=== PATIENT | female | born 1940 | race Caucasian/White ===

== ENCOUNTER 2017-11-20 10:25 | Inpatient (IN) | payer MEDICARE, BC ==
[2017-11-20] MEDS: SOD CHLORIDE 0.9% 1,000 ML IV ×5 (10:36→23:57)
[2017-11-20] MEDS: morphine 4 MG/ML VIAL IV (10:36)
[2017-11-20] MEDS: ONDANSETRON 4 MG INJ IV ×2 (10:37→22:28)
[2017-11-20 10:50] LABS: ADD MAN DIFF? NO
[2017-11-20 10:51] LABS: BASOPHILS % 0.2 % (0.0-2.0); EOSINOPHILS % 0.2 % (0.0-7.0); HEMATOCRIT 38.8 % (37.0-47.0); HEMOGLOBIN 13.4 g/dl (12.0-16.0); LYMPHOCYTES # 1.2 10^3/ul (0.8-2.9); LYMPHOCYTES % 11.2 % (15.0-51.0); MEAN CORPUSCULAR HEMOGLOBIN 31.2 pg (29.0-33.0); MEAN CORPUSCULAR HGB CONC 34.5 g/dl (32.0-37.0); MEAN CORPUSCULAR VOLUME 90.4 fl (82.0-101.0); MEAN PLATELET VOLUME 9.1 fl (7.4-10.4); MONOCYTE # 0.8 10^3/ul (0.3-0.9); MONOCYTES % 7.1 % (0.0-11.0); NEUTROPHIL # 8.5 10^3/ul (1.6-7.5); NEUTROPHILS % 80.9 % (39.0-77.0); PLATELET COUNT 217 10^3/UL (140-415); RED BLOOD COUNT 4.29 10^6/ul (4.20-5.40)
[2017-11-20 10:51] LABS: WHITE BLOOD COUNT 10.5 10^3/ul (4.8-10.8)
[2017-11-20 11:14] LABS: ALANINE AMINOTRANSFERASE 533 IU/L (13-69); ALBUMIN 4.2 g/dl (3.3-4.9); ALKALINE PHOSPHATASE 135 IU/L (42-121); ANION GAP 19 (8-16); ASPARTATE AMINO TRANSFERASE 633 IU/L (15-46); BILIRUBIN,INDIRECT 2.4 mg/dl (0-1.1); BILIRUBIN,TOTAL 3.2 mg/dl (0.2-1.3); BLOOD UREA NITROGEN 12 mg/dl (7-20); CALCIUM 10.1 mg/dl (8.4-10.2); CARBON DIOXIDE 29 mmol/L (21-31); CHLORIDE 104 mmol/L (97-110); CREATININE 0.82 mg/dl (0.44-1.00); GLUCOSE 144 mg/dl (70-220); POTASSIUM 4.3 mmol/L (3.5-5.1); SODIUM 148 mmol/L (135-144)
[2017-11-20] MEDS: HYDROmorphONE 0.5 MG/0.5 ML SYG IV ×3 (11:34→22:37)
[2017-11-20 12:46] LABS: LIPASE 36198 U/L (23-300)
[2017-11-20 12:54] LABS: TROPONIN-I < 0.012 ng/ml (0.00-0.12)
[2017-11-20] MEDS ORDERED: ACETAMINOPHEN 325 MG TAB PO (13:30)
[2017-11-20 14:05] LABS: ADD UMIC YES; UR ASCORBIC ACID NEGATIVE (NEGATIVE); UR BACTERIA FEW /HPF (NONE SEEN); UR BILIRUBIN (Dip) NEGATIVE (NEGATIVE); UR BLOOD (Dip) 1+ mg/dL (NEGATIVE); UR CLARITY CLOUDY (CLEAR); UR COLOR YELLOW (YELLOW); UR GLUCOSE (Dip) NEGATIVE (NEGATIVE); UR KETONES (Dip) NEGATIVE (NEGATIVE); UR LEUKOCYTE ESTERASE (Dip) 3+ Leu/ul (NEGATIVE); UR NITRITE (Dip) NEGATIVE (NEGATIVE); UR NONSQUAMOUS EPITHELIAL CELL 3 /HPF (NONE SEEN); UR RBC 0 /HPF (0-5); UR SPECIFIC GRAVITY (Dip) 1.004 (1.003-1.030); UR SQUAMOUS EPITHELIAL CELL MODERATE /HPF (FEW); UR TOTAL PROTEIN (Dip) NEGATIVE (NEGATIVE); UR UROBILINOGEN (Dip) NEGATIVE (NEGATIVE); UR WBC 74 /HPF (0-5)
[2017-11-20] MEDS ORDERED: ACETAMINOPHEN 650 MG SUPP PR (15:30)
[2017-11-20] MEDS ORDERED: NACL 0.9% 3 ML SYG IV (15:30)
[2017-11-20] MEDS: CEFTRIAXONE 1 GM/50 ML (PMX) 50 ML IVPB (15:39)
[2017-11-20] MEDS: ASPIRIN 81 MG TAB PO (15:39)
[2017-11-20] MEDS: metroNIDAZOLE 500 MG/NS (PMX) 100 ML IVPB ×2 (15:53→22:08)
[2017-11-20] MEDS: FAMOTIDINE 20 MG INJ IV (17:10)
[2017-11-20] MEDS: CIPROFLOXACIN 400MG/D5W 200 ML IVPB (21:00)
[2017-11-20] MEDS: FAMOTIDINE 20 MG TAB PO (21:00)
[2017-11-20] MEDS: SOD CHLORIDE 0.9% 500 ML IV (23:30)
[2017-11-21 08:45] LABS: ADD MAN DIFF? NO
[2017-11-21 08:51] LABS: BASOPHILS % 0.1 % (0.0-2.0); HEMATOCRIT 35.3 % (37.0-47.0); HEMOGLOBIN 11.8 g/dl (12.0-16.0); LYMPHOCYTES # 0.7 10^3/ul (0.8-2.9); LYMPHOCYTES % 5.4 % (15.0-51.0); MEAN CORPUSCULAR HEMOGLOBIN 31.4 pg (29.0-33.0); MEAN CORPUSCULAR HGB CONC 33.4 g/dl (32.0-37.0); MEAN CORPUSCULAR VOLUME 93.9 fl (82.0-101.0); MEAN PLATELET VOLUME 9.5 fl (7.4-10.4); MONOCYTE # 0.6 10^3/ul (0.3-0.9); NEUTROPHIL # 10.9 10^3/ul (1.6-7.5); PLATELET COUNT 159 10^3/UL (140-415); RED BLOOD COUNT 3.76 10^6/ul (4.20-5.40); RED CELL DISTRIBUTION WIDTH 12.9 % (11.5-14.5)
[2017-11-21 08:51] LABS: WHITE BLOOD COUNT 12.2 10^3/ul (4.8-10.8)
[2017-11-21] MEDS: FAMOTIDINE 20 MG INJ IV (08:57)
[2017-11-21] MEDS: ONDANSETRON 4 MG INJ IV ×2 (08:58→13:23)
[2017-11-21] MEDS: FAMOTIDINE 20 MG TAB PO (09:00)
[2017-11-21] MEDS: HYDROmorphONE 0.5 MG/0.5 ML SYG IV ×4 (09:03→22:36)
[2017-11-21 09:09] LABS: INR 1.03; PROTIME 13.6 Sec (11.9-14.9); PT RATIO 1.1
[2017-11-21] MEDS: SOD CHLORIDE 0.9% 500 ML IV ×2 (09:10→18:25)
[2017-11-21] MEDS: metroNIDAZOLE 500 MG/NS (PMX) 100 ML IVPB ×3 (09:10→21:06)
[2017-11-21] MEDS: ENOXAPARIN 40 MG/0.4 ML SYG SC (09:12)
[2017-11-21 09:23] LABS: HEMOGLOBIN A1C 5.4 % (0-5.9)
[2017-11-21 09:30] LABS: LACTATE DEHYDROGENASE 769 IU/L (313-618)
[2017-11-21 09:32] LABS: ALANINE AMINOTRANSFERASE 312 IU/L (13-69); ALBUMIN 3.3 g/dl (3.3-4.9); ALBUMIN/GLOBULIN RATIO 1.06; ALKALINE PHOSPHATASE 122 IU/L (42-121); ANION GAP 16 (8-16); ASPARTATE AMINO TRANSFERASE 244 IU/L (15-46); BILIRUBIN,INDIRECT 1.9 mg/dl (0-1.1); BLOOD UREA NITROGEN 13 mg/dl (7-20); CALCIUM 8.6 mg/dl (8.4-10.2); CARBON DIOXIDE 23 mmol/L (21-31); CHLORIDE 111 mmol/L (97-110); CHOL/HDL RATIO 3.3 RATIO; CHOLESTEROL 189 mg/dl (100-200); CREATININE 0.68 mg/dl (0.44-1.00); GLUCOSE 118 mg/dl (70-220); HDL CHOLESTEROL 56 mg/dl (33-92); LDL CHOLESTEROL,CALCULATED 121 mg/dl; PHOSPHORUS 3.2 mg/dl (2.5-4.9); POTASSIUM 4.3 mmol/L (3.5-5.1); SODIUM 146 mmol/L (135-144); TOTAL PROTEIN 6.4 g/dl (6.1-8.1); TRIGLYCERIDES 59 mg/dl (0-149)
[2017-11-21 09:37] LABS: TROPONIN-I < 0.012 ng/ml (0.00-0.12)
[2017-11-21 09:55] LABS: THYROID STIMULATING HORMONE 0.145 MIU/L (0.465-4.680)
[2017-11-21 10:02] LABS: LIPASE 10026 U/L (23-300)
[2017-11-21] MEDS: LISINOPRIL 5 MG TAB PO (11:00)
[2017-11-21] MEDS: CIPROFLOXACIN 400MG/D5W 200 ML IVPB ×2 (11:51→22:30)
[2017-11-21] MEDS: SOD CHLORIDE 0.9% 1,000 ML IV ×3 (11:51→23:26)
[2017-11-21 12:15] LABS: FREE T3 2.47 pg/ml (2.77-5.27)
[2017-11-21 12:16] LABS: FREE T4 (FREE THYROXINE) 1.32 ng/dl (0.78-2.44)
[2017-11-21] MEDS ORDERED: HYDROmorphONE 0.5 MG/0.5 ML SYG IV (13:30)
[2017-11-22] MEDS: SOD CHLORIDE 0.9% 500 ML IV (02:22)
[2017-11-22] MEDS: PANTOPRAZOLE 40 MG INJ IV (05:21)
[2017-11-22] MEDS: HYDROmorphONE 0.5 MG/0.5 ML SYG IV ×5 (05:21→19:47)
[2017-11-22 06:03] LABS: ADD MAN DIFF? NO
[2017-11-22 06:11] LABS: BASOPHILS % 0.1 % (0.0-2.0); HEMATOCRIT 33.3 % (37.0-47.0); HEMOGLOBIN 11.2 g/dl (12.0-16.0); LYMPHOCYTES # 0.7 10^3/ul (0.8-2.9); LYMPHOCYTES % 4.9 % (15.0-51.0); MEAN CORPUSCULAR HEMOGLOBIN 31.3 pg (29.0-33.0); MEAN CORPUSCULAR HGB CONC 33.6 g/dl (32.0-37.0); MEAN PLATELET VOLUME 9.3 fl (7.4-10.4); MONOCYTE # 0.8 10^3/ul (0.3-0.9); MONOCYTES % 5.1 % (0.0-11.0); NEUTROPHIL # 13.2 10^3/ul (1.6-7.5); NEUTROPHILS % 89.1 % (39.0-77.0); PLATELET COUNT 142 10^3/UL (140-415); RED BLOOD COUNT 3.58 10^6/ul (4.20-5.40); RED CELL DISTRIBUTION WIDTH 12.8 % (11.5-14.5)
[2017-11-22 06:11] LABS: WHITE BLOOD COUNT 14.8 10^3/ul (4.8-10.8)
[2017-11-22 06:32] LABS: ALANINE AMINOTRANSFERASE 204 IU/L (13-69); ALBUMIN/GLOBULIN RATIO 1.07; ALKALINE PHOSPHATASE 99 IU/L (42-121); ANION GAP 13 (8-16); ASPARTATE AMINO TRANSFERASE 107 IU/L (15-46); BILIRUBIN,INDIRECT 1.5 mg/dl (0-1.1); BILIRUBIN,TOTAL 1.5 mg/dl (0.2-1.3); BLOOD UREA NITROGEN 15 mg/dl (7-20); CALCIUM 8.2 mg/dl (8.4-10.2); CARBON DIOXIDE 27 mmol/L (21-31); CHLORIDE 109 mmol/L (97-110); GLUCOSE 114 mg/dl (70-220); POTASSIUM 3.3 mmol/L (3.5-5.1); SODIUM 146 mmol/L (135-144); TOTAL PROTEIN 5.8 g/dl (6.1-8.1)
[2017-11-22] MEDS: metroNIDAZOLE 500 MG/NS (PMX) 100 ML IVPB ×3 (08:27→21:46)
[2017-11-22] MEDS: CIPROFLOXACIN 400MG/D5W 200 ML IVPB ×2 (08:27→20:39)
[2017-11-22] MEDS: SOD CHLORIDE 0.9% 1,000 ML IV ×4 (08:27→23:26)
[2017-11-22] MEDS: POTASSIUM CHLORIDE 100 ML IVPB (15:25)
[2017-11-22] MEDS: LISINOPRIL 5 MG TAB PO (15:54)
[2017-11-23] MEDS: HYDROmorphONE 0.5 MG/0.5 ML SYG IV ×9 (00:13→22:33)
[2017-11-23] MEDS: PANTOPRAZOLE 40 MG INJ IV (05:55)
[2017-11-23 05:57] LABS: ADD MAN DIFF? NO
[2017-11-23 06:00] LABS: WHITE BLOOD COUNT 13.6 10^3/ul (4.8-10.8)
[2017-11-23 06:00] LABS: BASOPHILS % 0.2 % (0.0-2.0); HEMATOCRIT 33.5 % (37.0-47.0); HEMOGLOBIN 11.4 g/dl (12.0-16.0); LYMPHOCYTES # 0.8 10^3/ul (0.8-2.9); LYMPHOCYTES % 6.1 % (15.0-51.0); MEAN CORPUSCULAR HEMOGLOBIN 31.6 pg (29.0-33.0); MEAN CORPUSCULAR VOLUME 92.8 fl (82.0-101.0); MEAN PLATELET VOLUME 9.5 fl (7.4-10.4); MONOCYTE # 0.9 10^3/ul (0.3-0.9); MONOCYTES % 6.6 % (0.0-11.0); NEUTROPHIL # 11.7 10^3/ul (1.6-7.5); NEUTROPHILS % 86.2 % (39.0-77.0); PLATELET COUNT 143 10^3/UL (140-415); RED BLOOD COUNT 3.61 10^6/ul (4.20-5.40); RED CELL DISTRIBUTION WIDTH 12.7 % (11.5-14.5)
[2017-11-23] MEDS: SOD CHLORIDE 0.9% 1,000 ML IV ×5 (06:06→21:02)
[2017-11-23 06:14] LABS: ALANINE AMINOTRANSFERASE 150 IU/L (13-69); ALKALINE PHOSPHATASE 104 IU/L (42-121); ANION GAP 13 (8-16); ASPARTATE AMINO TRANSFERASE 63 IU/L (15-46); BILIRUBIN,INDIRECT 1.3 mg/dl (0-1.1); BILIRUBIN,TOTAL 1.3 mg/dl (0.2-1.3); BLOOD UREA NITROGEN 15 mg/dl (7-20); CALCIUM 8.5 mg/dl (8.4-10.2); CARBON DIOXIDE 27 mmol/L (21-31); CHLORIDE 110 mmol/L (97-110); CREATININE 0.66 mg/dl (0.44-1.00); GLUCOSE 112 mg/dl (70-220); POTASSIUM 3.2 mmol/L (3.5-5.1); SODIUM 147 mmol/L (135-144)
[2017-11-23 06:22] LABS: LIPASE 308 U/L (23-300)
[2017-11-23] MEDS: metroNIDAZOLE 500 MG/NS (PMX) 100 ML IVPB ×3 (08:15→21:02)
[2017-11-23] MEDS: LISINOPRIL 5 MG TAB PO (08:16)
[2017-11-23] MEDS: CIPROFLOXACIN 400MG/D5W 200 ML IVPB ×2 (09:26→21:03)
[2017-11-23] MEDS: POTASSIUM CHLORIDE 100 ML IVPB ×2 (10:46→12:00)
[2017-11-23] MEDS: POTASSIUM CHLORIDE (SR) 20 MEQ TAB PO (13:30)
[2017-11-24] MEDS: HYDROmorphONE 0.5 MG/0.5 ML SYG IV ×8 (00:25→22:05)
[2017-11-24] MEDS: SOD CHLORIDE 0.9% 1,000 ML IV ×2 (06:09→18:34)
[2017-11-24] MEDS: PANTOPRAZOLE 40 MG INJ IV (06:09)
[2017-11-24 07:12] LABS: ADD MAN DIFF? NO
[2017-11-24 07:28] LABS: BASOPHILS % 0.2 % (0.0-2.0); EOSINOPHILS % 0.3 % (0.0-7.0); HEMOGLOBIN 10.7 g/dl (12.0-16.0); LYMPHOCYTES # 0.7 10^3/ul (0.8-2.9); LYMPHOCYTES % 6.7 % (15.0-51.0); MEAN CORPUSCULAR HEMOGLOBIN 31.3 pg (29.0-33.0); MEAN CORPUSCULAR HGB CONC 33.4 g/dl (32.0-37.0); MEAN CORPUSCULAR VOLUME 93.6 fl (82.0-101.0); MEAN PLATELET VOLUME 9.6 fl (7.4-10.4); MONOCYTES % 8.6 % (0.0-11.0); NEUTROPHIL # 9.3 10^3/ul (1.6-7.5); NEUTROPHILS % 83.4 % (39.0-77.0); PLATELET COUNT 126 10^3/UL (140-415); RED BLOOD COUNT 3.42 10^6/ul (4.20-5.40); RED CELL DISTRIBUTION WIDTH 12.9 % (11.5-14.5)
[2017-11-24 07:28] LABS: WHITE BLOOD COUNT 11.1 10^3/ul (4.8-10.8)
[2017-11-24 07:31] LABS: POSITIVE DIFF @See below
[2017-11-24 07:42] LABS: LIPASE 132 U/L (23-300)
[2017-11-24 07:43] LABS: ALANINE AMINOTRANSFERASE 109 IU/L (13-69); ALBUMIN 2.8 g/dl (3.3-4.9); ALKALINE PHOSPHATASE 86 IU/L (42-121); ANION GAP 13 (8-16); ASPARTATE AMINO TRANSFERASE 36 IU/L (15-46); BILIRUBIN,INDIRECT 0.9 mg/dl (0-1.1); BILIRUBIN,TOTAL 0.9 mg/dl (0.2-1.3); BLOOD UREA NITROGEN 14 mg/dl (7-20); CALCIUM 8.3 mg/dl (8.4-10.2); CARBON DIOXIDE 28 mmol/L (21-31); CHLORIDE 109 mmol/L (97-110); CREATININE 0.64 mg/dl (0.44-1.00); GLUCOSE 109 mg/dl (70-220); POTASSIUM 3.7 mmol/L (3.5-5.1); SODIUM 146 mmol/L (135-144); TOTAL PROTEIN 5.6 g/dl (6.1-8.1)
[2017-11-24 07:59] LABS: FREE T4 (FREE THYROXINE) 0.96 ng/dl (0.78-2.44)
[2017-11-24] MEDS: CIPROFLOXACIN 400MG/D5W 200 ML IVPB ×2 (09:02→22:07)
[2017-11-24] MEDS: LISINOPRIL 5 MG TAB PO (09:03)
[2017-11-24] MEDS: metroNIDAZOLE 500 MG/NS (PMX) 100 ML IVPB ×3 (09:50→20:39)
[2017-11-25] MEDS: HYDROmorphONE 0.5 MG/0.5 ML SYG IV ×6 (01:39→23:12)
[2017-11-25] MEDS ORDERED: hydrALAzine 20 MG INJ IV (02:00)
[2017-11-25] MEDS: SOD CHLORIDE 0.9% 1,000 ML IV ×2 (04:53→07:26)
[2017-11-25] MEDS: PANTOPRAZOLE 40 MG INJ IV (06:45)
[2017-11-25] MEDS: LISINOPRIL 5 MG TAB PO (09:18)
[2017-11-25] MEDS: POTASSIUM CHLORIDE (SR) 20 MEQ TAB PO (09:18)
[2017-11-25] MEDS: SOD CHLORIDE 0.45% 1,000 ML IV ×2 (09:19→17:46)
[2017-11-25] MEDS: POLYETHYLENE GLYCOL 17 GM PACKET NGT (10:00)
[2017-11-25 11:13] LABS: ALANINE AMINOTRANSFERASE 74 IU/L (13-69); ALBUMIN 2.7 g/dl (3.3-4.9); ALKALINE PHOSPHATASE 73 IU/L (42-121); ANION GAP 11 (8-16); ASPARTATE AMINO TRANSFERASE 26 IU/L (15-46); BILIRUBIN,INDIRECT 0.7 mg/dl (0-1.1); BILIRUBIN,TOTAL 0.7 mg/dl (0.2-1.3); BLOOD UREA NITROGEN 11 mg/dl (7-20); CALCIUM 7.9 mg/dl (8.4-10.2); CARBON DIOXIDE 27 mmol/L (21-31); CHLORIDE 106 mmol/L (97-110); CREATININE 0.57 mg/dl (0.44-1.00); GLUCOSE 94 mg/dl (70-220); POTASSIUM 3.1 mmol/L (3.5-5.1); SODIUM 141 mmol/L (135-144); TOTAL PROTEIN 5.4 g/dl (6.1-8.1)
[2017-11-25] MEDS: HYDROCODONE/APAP (5/325) TAB PO (17:42)
[2017-11-26] MEDS: HYDROCODONE/APAP (5/325) TAB PO ×4 (02:46→20:21)
[2017-11-26] MEDS: BISACODYL 10 MG SUPP PR (06:41)
[2017-11-26] MEDS: PANTOPRAZOLE (EC) 40 MG TAB PO (06:41)
[2017-11-26] MEDS: SOD CHLORIDE 0.45% 1,000 ML IV ×2 (06:43→11:40)
[2017-11-26] MEDS: POLYETHYLENE GLYCOL 17 GM PACKET NGT (08:28)
[2017-11-26] MEDS: LISINOPRIL 5 MG TAB PO (08:28)
[2017-11-26] MEDS: POTASSIUM CHLORIDE (SR) 20 MEQ TAB PO (12:16)
[2017-11-26 12:17] LABS: ADD UMIC YES; UR ASCORBIC ACID NEGATIVE (NEGATIVE); UR BACTERIA FEW /HPF (NONE SEEN); UR BILIRUBIN (Dip) NEGATIVE (NEGATIVE); UR BLOOD (Dip) 1+ mg/dL (NEGATIVE); UR CLARITY CLEAR (CLEAR); UR COLOR STRAW (YELLOW); UR GLUCOSE (Dip) NEGATIVE (NEGATIVE); UR KETONES (Dip) 1+ mg/dL (NEGATIVE); UR LEUKOCYTE ESTERASE (Dip) TRACE Leu/ul (NEGATIVE); UR NITRITE (Dip) NEGATIVE (NEGATIVE); UR RBC 1 /HPF (0-5); UR SPECIFIC GRAVITY (Dip) 1.005 (1.003-1.030); UR SQUAMOUS EPITHELIAL CELL FEW /HPF (FEW); UR TOTAL PROTEIN (Dip) NEGATIVE (NEGATIVE); UR UROBILINOGEN (Dip) NEGATIVE (NEGATIVE); UR WBC 2 /HPF (0-5)
[2017-11-26] MEDS: HYDROmorphONE 0.5 MG/0.5 ML SYG IV (13:51)
[2017-11-27] MEDS: SOD CHLORIDE 0.45% 1,000 ML IV ×2 (00:41→16:28)
[2017-11-27] MEDS: HYDROCODONE/APAP (5/325) TAB PO ×4 (00:41→19:43)
[2017-11-27] MEDS: PANTOPRAZOLE (EC) 40 MG TAB PO (05:59)
[2017-11-27] MEDS: LISINOPRIL 5 MG TAB PO (08:29)
[2017-11-27] MEDS: POLYETHYLENE GLYCOL 17 GM PACKET NGT (08:29)
[2017-11-27 08:54] LABS: ANION GAP 13 (8-16); BLOOD UREA NITROGEN 4 mg/dl (7-20); CALCIUM 7.8 mg/dl (8.4-10.2); CARBON DIOXIDE 29 mmol/L (21-31); CHLORIDE 102 mmol/L (97-110); CREATININE 0.56 mg/dl (0.44-1.00); GLUCOSE 106 mg/dl (70-220); SODIUM 141 mmol/L (135-144)
[2017-11-27] MEDS ORDERED: POTASSIUM CHLORIDE 100 ML IVPB (11:00)
[2017-11-27] MEDS: POTASSIUM CHLORIDE (SR) 20 MEQ TAB PO ×2 (11:17→12:45)
[2017-11-28] MEDS: HYDROCODONE/APAP (5/325) TAB PO ×3 (04:03→17:45)
[2017-11-28] MEDS: SOD CHLORIDE 0.45% 1,000 ML IV ×2 (04:07→17:00)
[2017-11-28] MEDS: PANTOPRAZOLE (EC) 40 MG TAB PO (06:27)
[2017-11-28] MEDS ORDERED: POLYETHYLENE GLYCOL 17 GM PACKET PO ×2 (09:00)
[2017-11-28] MEDS: LISINOPRIL 5 MG TAB PO (09:05)
[2017-11-28 12:42] LABS: ANION GAP 15 (8-16); BLOOD UREA NITROGEN 2 mg/dl (7-20); CALCIUM 8.2 mg/dl (8.4-10.2); CARBON DIOXIDE 27 mmol/L (21-31); CHLORIDE 102 mmol/L (97-110); CREATININE 0.55 mg/dl (0.44-1.00); GLUCOSE 163 mg/dl (70-220); POTASSIUM 3.5 mmol/L (3.5-5.1); SODIUM 140 mmol/L (135-144)
[2017-11-28] MEDS: BISACODYL 10 MG SUPP PR (15:55)
== END 2017-11-28 19:05 | disposition home or self-care (01) | DRG 439 ==
LOC: MS2 17:44 → E/R 10:25 → MS2 11-21 22:50 → MS4 13:13 → MS2 11-21 23:00
DX: K85.10 Biliary acute pancreatitis without necrosis or infection (principal); K56.51 Intestinal adhesions [bands], with partial obstruction; N39.0 Urinary tract infection, site not specified; I47.1 Supraventricular tachycardia; D47.2 Monoclonal gammopathy; K76.0 Fatty (change of) liver, not elsewhere classified; K76.89 Other specified diseases of liver; E03.9 Hypothyroidism, unspecified; I71.4 Abdominal aortic aneurysm, without rupture; I10 Essential (primary) hypertension; K21.9 Gastro-esophageal reflux disease without esophagitis; K57.90 Diverticulosis of intestine, part unspecified, without perforation or abscess without bleeding; I25.10 Atherosclerotic heart disease of native coronary artery without angina pectoris; I73.9 Peripheral vascular disease, unspecified; K42.9 Umbilical hernia without obstruction or gangrene; M47.9 Spondylosis, unspecified; K44.9 Diaphragmatic hernia without obstruction or gangrene; E66.9 Obesity, unspecified; Z68.30 Body mass index [BMI] 30.0-30.9, adult; Z90.12 Acquired absence of left breast and nipple; Z90.710 Acquired absence of both cervix and uterus; Z85.42 Personal history of malignant neoplasm of other parts of uterus
CPT/HCPCS: 36415; 71045; 74176; 74181; 76705; 80048; 80053; 80061; 81001; 83036; 83615; 83690; 83735; 84100; 84439; 84443; 84481; 84484; 85025; 85610; 87086; 93005; 93306; 96365; 96366; 96375; 99285-25

== ENCOUNTER 2017-12-13 19:23 | Emergency (ER) | payer SELFPAY, BC, MEDICARE | END 2017-12-13 21:40 | disposition left against medical advice (07) | LOC: E/R 19:23 | DX: Z53.21 Procedure and treatment not carried out due to patient leaving prior to being seen by health care provider (principal) ==

== ENCOUNTER 2018-06-30 17:09 | Emergency (ER) | payer MEDICARE, BC ==
[2018-06-30 17:38] LABS: ADD MAN DIFF? NO
[2018-06-30 17:43] LABS: BASOPHILS % 0.5 % (0.0-2.0); EOSINOPHILS # 0.4 10^3/ul (0.0-0.5); EOSINOPHILS % 6.1 % (0.0-7.0); HEMATOCRIT 38.9 % (37.0-47.0); HEMOGLOBIN 12.8 g/dl (12.0-16.0); LYMPHOCYTES # 2.1 10^3/ul (0.8-2.9); LYMPHOCYTES % 32.7 % (15.0-51.0); MEAN CORPUSCULAR HEMOGLOBIN 29.9 pg (29.0-33.0); MEAN CORPUSCULAR HGB CONC 32.9 g/dl (32.0-37.0); MEAN CORPUSCULAR VOLUME 90.9 fl (82.0-101.0); MONOCYTE # 0.5 10^3/ul (0.3-0.9); MONOCYTES % 7.8 % (0.0-11.0); NEUTROPHIL # 3.3 10^3/ul (1.6-7.5); NEUTROPHILS % 52.4 % (39.0-77.0); PLATELET COUNT 195 10^3/UL (140-415); RED BLOOD COUNT 4.28 10^6/ul (4.20-5.40)
[2018-06-30 17:43] LABS: WHITE BLOOD COUNT 6.3 10^3/ul (4.8-10.8)
[2018-06-30 18:01] LABS: ALANINE AMINOTRANSFERASE 10 IU/L (13-69); ALBUMIN 4.4 g/dl (3.3-4.9); ALKALINE PHOSPHATASE 84 IU/L (42-121); ANION GAP 10 (5-13); ASPARTATE AMINO TRANSFERASE 32 IU/L (15-46); BILIRUBIN,INDIRECT 1.2 mg/dl (0-1.1); BILIRUBIN,TOTAL 1.2 mg/dl (0.2-1.3); BLOOD UREA NITROGEN 11 mg/dl (7-20); CALCIUM 9.8 mg/dl (8.4-10.2); CARBON DIOXIDE 25 mmol/L (21-31); CHLORIDE 104 mmol/L (97-110); CREATININE 0.71 mg/dl (0.44-1.00); GLUCOSE 103 mg/dl (70-220); LIPASE 89 U/L (23-300); POTASSIUM 4.9 mmol/L (3.5-5.1); SODIUM 139 mmol/L (135-144); TOTAL PROTEIN 8.4 g/dl (6.1-8.1)
[2018-06-30] MEDS: SOD CHLORIDE 0.9% 1,000 ML IV (18:03)
[2018-06-30] MEDS: morphine 4 MG/ML VIAL IV (18:03)
[2018-06-30] MEDS: ONDANSETRON 4 MG INJ IV (18:03)
[2018-06-30 18:13] LABS: TROPONIN-I < 0.012 ng/ml (0.000-0.120)
[2018-06-30] MEDS: DIAZEPAM 5 MG TAB PO (18:58)
[2018-06-30 19:31] LABS: URINE BLOOD (Dip) POC Negative (NEGATIVE); URINE GLUCOSE (Dip) POC Negative (NEGATIVE); URINE KETONES (Dip) POC Negative (NEGATIVE); URINE LEUKOCYTE EST (Dip) POC Negative (NEGATIVE); URINE NITRITE (Dip) POC Negative (NEGATIVE); URINE TOTAL PROTEIN POC Trace (NEGATIVE)
[2018-06-30 19:31] LABS: URINE PH (Dip) POC 7.5 (5.0-8.5)
== END 2018-06-30 19:50 | disposition home or self-care (01) ==
LOC: E/R 17:09
DX: M54.5 Low back pain (principal); R40.2142 Coma scale, eyes open, spontaneous, at arrival to emergency department; R40.2252 Coma scale, best verbal response, oriented, at arrival to emergency department; R40.2362 Coma scale, best motor response, obeys commands, at arrival to emergency department; R10.9 Unspecified abdominal pain
CPT/HCPCS: 74176; 80053; 81003; 83690; 84484; 85025; 93005; 96374; 96375; 99285-25